=== PATIENT | male | born 1950 | race African-American/Black ===

== ENCOUNTER 2020-07-17 15:15 | Inpatient (IN) ==
[2020-07-17] MEDS ORDERED: SODIUM CHLORIDE 0.9% 1,000 ML IV STA (16:18)
[2020-07-17 17:05] LABS: Basophils # 0.1 10*3/uL (0.0-0.2); Basophils % 0.5 % (0.0-0.8); Eosinophils % 0.3 % (0.00-10.9); Hematocrit 34.3 VOL% (42.0-52.0); Hemoglobin 10.9 GM/DL (14.0-18.0); Immature Granulocytes % 2.7 %; Immature Granulocytes Absolute 0.25 #; Lymphocytes % 10.4 % (21.2-54.2); Mean Corpuscular HGB Conc 31.8 GM/DL (32-36); Mean Corpuscular Volume 76.7 FL (87-102); Mean Platelet Volume 10.1 FL (9.6-12.0); Monocytes % 8.2 % (1.7-12.7); Neutrophils % 77.9 % (38.7-73.9); Platelet Count 72 T/CUMM (130-400); Red Blood Count 4.47 MC/CUMM (3.8-5.5); Red Cell Distribution Width 14.1 % (9.3-17.3); White Blood Count 9.2 T/CUMM (4-12)
[2020-07-17 17:27] LABS: Alanine Aminotransferase 24 U/L (16-61); Alkaline Phosphatase 69 U/L (45-117); Aspartate Amino Transferase 21 U/L (0-37); Blood Urea Nitrogen 14 MG/DL (7-18); Calcium 8.9 MG/DL (8.5-10.1); Carbon Dioxide 27 MMOL/L (21-32); Estimated Glom Filtration Rate 75 ML/MIN; Glucose 230 MG/DL (74-106); Potassium 3.9 MMOL/L (3.5-5.1); Sodium 136 MMOL/L (136-145); Total Protein 7.7 G/DL (6.4-8.3)
[2020-07-17 17:40] LABS: Anisocytosis 1+; Band Neutrophils 4 % (0-10); Dohle Bodies 2+; Eosinophils 1 % (0-10); Lymphocytes 13 % (20-55); Microcytosis 1+; Platelet Estimate Decreased; Segmented Neutrophils 75 % (50-85); Total Cells Counted 100; Toxic Granulation 1+
[2020-07-17] MEDS ORDERED: LEVOFLOXACIN INJ 500 MG in PREMIX 1 EACH IV STA (17:48)
[2020-07-17] MEDS ORDERED: ONDANSETRON 4 MG/2 ML VIAL IV PRN (19:18)
[2020-07-17] MEDS ORDERED: DEXTROSE 50% 25 GM/50 ML VIAL IV PRN ×2 (19:18)
[2020-07-17] MEDS ORDERED: ZALEPLON 5 MG CAPSULE PO PRN (19:18)
[2020-07-17] MEDS ORDERED: GLUCAGON 1 MG VIAL IM PRN (19:18)
[2020-07-17] MEDS ORDERED: ALBUTEROL/IPRATROPIUM 3 ML NEB RESP TX PRN (19:42)
[2020-07-17 20:25] LABS: Bilirubin,Urine Negative (Negative); Blood, Urine Negative (Negative); Glucose,Urine (UA) >=500 mg/dL (Negative); Ketones,Urine Negative (Negative); Nitrite,Urine Positive (Negative); Protein,Urine 30 MG/DL; Urine Appearance CLEAR (Clear); Urine Color Yellow (Yellow); Urine Specific Gravity 1.014 (1.001-1.035); Urine Urobilinogen < 2.0 EU/DL (0.2-1.0)
[2020-07-17 20:34] LABS: Bacteria,Urine Occasional /HPF (Few); Mucus,Urine Occasional /LPF (Occasional); RBC,Urine 1 /HPF (0-4); Squamous Epithelial Cell,Urine Occasional /HPF (0-10); WBC,Urine 6 /HPF (0-6)
[2020-07-17] MEDS: INSULIN REGULAR 100 UNIT/ML SUBCUT SCH (20:58)
[2020-07-17] MEDS ORDERED: ENOXAPARIN 40 MG/0.4 ML SYRINGE SUBCUT SCH (21:00)
[2020-07-17] MEDS ORDERED: LORazepam 1 MG TABLET PO PRN (21:43)
[2020-07-17] MEDS ORDERED: ONDANSETRON ODT 4 MG TABLET PO PRN (21:44)
[2020-07-18] MEDS: ACETAMINOPHEN 325 MG TABLET PO PRN ×2 (00:04→16:22)
[2020-07-18 04:21] LABS: Basophils % 0.3 % (0.0-0.8); Eosinophils % 0.3 % (0.00-10.9); Hematocrit 34.5 VOL% (42.0-52.0); Hemoglobin 11.1 GM/DL (14.0-18.0); Immature Granulocytes % 1.3 %; Immature Granulocytes Absolute 0.12 #; Lymphocytes # 1.6 10*3/uL (1.4-4.0); Lymphocytes % 18.1 % (21.2-54.2); Mean Corpuscular HGB Conc 32.2 GM/DL (32-36); Mean Corpuscular Volume 75.8 FL (87-102); Mean Platelet Volume 10.4 FL (9.6-12.0); Monocytes % 10.3 % (1.7-12.7); Neutrophils % 69.7 % (38.7-73.9); Red Blood Count 4.55 MC/CUMM (3.8-5.5); Red Cell Distribution Width 13.8 % (9.3-17.3)
[2020-07-18 04:22] LABS: Platelet Count 88 T/CUMM (130-400)
[2020-07-18 04:42] LABS: Lymphocytes 16 % (20-55); Platelet Estimate Decreased; Segmented Neutrophils 75 % (50-85); Total Cells Counted 100
[2020-07-18 04:43] LABS: Hypochromasia Slight; Microcytosis Slight
[2020-07-18 04:45] LABS: Albumin 2.4 G/DL (3.4-5.0); Bilirubin,Total 0.6 MG/DL (0.2-1.0); Calcium 8.4 MG/DL (8.5-10.1); Osmolality,Calculated 268.4 MOS/KG (273-304); Potassium 3.7 MMOL/L (3.5-5.1); Total Protein 6.9 G/DL (6.4-8.3)
[2020-07-18] MEDS: INSULIN REGULAR 100 UNIT/ML SUBCUT SCH ×4 (07:38→20:23)
[2020-07-18] MEDS: amLODIPine 10 MG TABLET PO SCH (08:18)
[2020-07-18] MEDS: ASPIRIN EC 81 MG TABLET PO SCH (08:18)
[2020-07-18] MEDS: CHOLECALCIFEROL 1,000 UNIT TABLET PO SCH (08:18)
[2020-07-18] MEDS: MULTIVITAMIN (CENTRUM) TABLET PO SCH (08:19)
[2020-07-18] MEDS: PANTOPRAZOLE 40 MG TABLET PO SCH (08:19)
[2020-07-18] MEDS: SIMVASTATIN 20 MG TABLET PO SCH (08:19)
[2020-07-18] MEDS: METOPROLOL TARTRATE 25 MG TABLET PO SCH ×2 (08:19→20:23)
[2020-07-18] MEDS: THIAMINE 100 MG TABLET PO SCH (08:19)
[2020-07-18] MEDS: CYANOCOBALAMIN 500 MCG TABLET PO SCH (08:20)
[2020-07-18] MEDS: FOLIC ACID 1 MG TABLET PO SCH (08:20)
[2020-07-18] MEDS ORDERED: OLANZapine 5 MG TABLET PO SCH (09:00)
[2020-07-18] MEDS: DEXAMETHASONE 4 MG TABLET PO SCH ×2 (11:57→20:23)
[2020-07-18] MEDS ORDERED: MORPHINE 4 MG/1 ML VIAL IV PRN (14:32)
[2020-07-18] MEDS: cefTRIAXone 2,000 MG in SYRINGE 1 EACH IV SCH (16:18)
[2020-07-18] MEDS: AZITHROMYCIN INJ 500 MG in SODIUM CHLORIDE 0.9% 250 ML IV SCH (16:22)
[2020-07-18] MEDS ORDERED: LEVOFLOXACIN INJ 750 MG in PREMIX 1 EACH IV SCH (20:00)
[2020-07-18] MEDS: OLANZapine 5 MG TABLET PO SCH (20:23)
[2020-07-19] MEDS: ACETAMINOPHEN 325 MG TABLET PO PRN (00:49)
[2020-07-19 05:17] LABS: Basophils # 0.1 10*3/uL (0.0-0.2); Basophils % 0.4 % (0.0-0.8); Hematocrit 37.2 VOL% (42.0-52.0); Hemoglobin 12.1 GM/DL (14.0-18.0); Immature Granulocytes % 2.9 %; Immature Granulocytes Absolute 0.35 #; Lymphocytes # 1.1 10*3/uL (1.4-4.0); Lymphocytes % 8.7 % (21.2-54.2); Mean Corpuscular HGB Conc 32.5 GM/DL (32-36); Mean Corpuscular Volume 74.8 FL (87-102); Mean Platelet Volume 10.9 FL (9.6-12.0); Monocytes % 5.3 % (1.7-12.7); Neutrophils % 82.7 % (38.7-73.9); Red Blood Count 4.97 MC/CUMM (3.8-5.5); Red Cell Distribution Width 13.8 % (9.3-17.3)
[2020-07-19 05:27] LABS: White Blood Count 12.2 T/CUMM (4-12)
[2020-07-19 05:28] LABS: Platelet Count 125 T/CUMM (130-400)
[2020-07-19 05:30] LABS: Calcium 9.2 MG/DL (8.5-10.1); Osmolality,Calculated 274.2 MOS/KG (273-304); Potassium 4.2 MMOL/L (3.5-5.1)
[2020-07-19 05:39] LABS: Band Neutrophils 2 % (0-10); Hypochromasia 1+; Lymphocytes 12 % (20-55); Microcytosis 1+; Platelet Estimate Normal; Segmented Neutrophils 83 % (50-85); Total Cells Counted 100
[2020-07-19] MEDS: DEXAMETHASONE 4 MG TABLET PO SCH ×2 (08:25→22:42)
[2020-07-19] MEDS: METOPROLOL TARTRATE 25 MG TABLET PO SCH ×2 (08:25→22:42)
[2020-07-19] MEDS: SIMVASTATIN 20 MG TABLET PO SCH (08:25)
[2020-07-19] MEDS: ASPIRIN EC 81 MG TABLET PO SCH (08:25)
[2020-07-19] MEDS: MULTIVITAMIN (CENTRUM) TABLET PO SCH (08:25)
[2020-07-19] MEDS: FOLIC ACID 1 MG TABLET PO SCH (08:25)
[2020-07-19] MEDS: THIAMINE 100 MG TABLET PO SCH (08:25)
[2020-07-19] MEDS: CHOLECALCIFEROL 1,000 UNIT TABLET PO SCH (08:25)
[2020-07-19] MEDS: PANTOPRAZOLE 40 MG TABLET PO SCH (08:25)
[2020-07-19] MEDS: CYANOCOBALAMIN 500 MCG TABLET PO SCH (08:26)
[2020-07-19] MEDS: amLODIPine 10 MG TABLET PO SCH (08:26)
[2020-07-19] MEDS: INSULIN REGULAR 100 UNIT/ML SUBCUT SCH ×4 (13:27→22:42)
[2020-07-19] MEDS: AZITHROMYCIN INJ 500 MG in SODIUM CHLORIDE 0.9% 250 ML IV SCH (13:59)
[2020-07-19] MEDS: MEROPENEM 500 MG in SODIUM CHLORIDE 0.9% 100 ML IV SCH ×2 (17:30→22:43)
[2020-07-19] MEDS: cefTRIAXone 2,000 MG in SYRINGE 1 EACH IV SCH (17:30)
[2020-07-19] MEDS: OLANZapine 5 MG TABLET PO SCH (22:42)
[2020-07-20 04:16] LABS: Basophils # 0.1 10*3/uL (0.0-0.2); Basophils % 0.3 % (0.0-0.8); Eosinophils % 0.1 % (0.00-10.9); Hematocrit 32.6 VOL% (42.0-52.0); Immature Granulocytes % 2.7 %; Immature Granulocytes Absolute 0.42 #; Lymphocytes # 1.1 10*3/uL (1.4-4.0); Lymphocytes % 6.9 % (21.2-54.2); Mean Corpuscular HGB Conc 33.7 GM/DL (32-36); Mean Corpuscular Volume 72.6 FL (87-102); Mean Platelet Volume 10.5 FL (9.6-12.0); Platelet Count 177 T/CUMM (130-400); Red Blood Count 4.49 MC/CUMM (3.8-5.5); Red Cell Distribution Width 13.4 % (9.3-17.3); White Blood Count 15.6 T/CUMM (4-12)
[2020-07-20] MEDS: MEROPENEM 500 MG in SODIUM CHLORIDE 0.9% 100 ML IV SCH ×2 (04:36→10:24)
[2020-07-20 04:38] LABS: Hypochromasia 1+; Lymphocytes 4 % (20-55); Microcytosis Slight; Platelet Estimate Adequate; Segmented Neutrophils 90 % (50-85); Total Cells Counted 100
[2020-07-20 05:34] LABS: Calcium 8.7 MG/DL (8.5-10.1); Osmolality,Calculated 270.5 MOS/KG (273-304); Potassium 4.4 MMOL/L (3.5-5.1)
[2020-07-20] MEDS: METOPROLOL TARTRATE 25 MG TABLET PO SCH (08:14)
[2020-07-20] MEDS: amLODIPine 10 MG TABLET PO SCH (08:15)
[2020-07-20] MEDS: CHOLECALCIFEROL 1,000 UNIT TABLET PO SCH (08:15)
[2020-07-20] MEDS: CYANOCOBALAMIN 500 MCG TABLET PO SCH (08:15)
[2020-07-20] MEDS: FOLIC ACID 1 MG TABLET PO SCH (08:15)
[2020-07-20] MEDS: SIMVASTATIN 20 MG TABLET PO SCH (08:15)
[2020-07-20] MEDS: PANTOPRAZOLE 40 MG TABLET PO SCH (08:15)
[2020-07-20] MEDS: MULTIVITAMIN (CENTRUM) TABLET PO SCH (08:15)
[2020-07-20] MEDS: DEXAMETHASONE 4 MG TABLET PO SCH (08:16)
[2020-07-20] MEDS: THIAMINE 100 MG TABLET PO SCH (08:16)
[2020-07-20] MEDS: ASPIRIN EC 81 MG TABLET PO SCH (08:16)
[2020-07-20] MEDS: INSULIN REGULAR 100 UNIT/ML SUBCUT SCH ×2 (10:44→13:42)
[2020-07-20] MEDS ORDERED: ERTAPENEM 1,000 MG in SODIUM CHLORIDE 0.9% 100 ML IV SCH (11:30)
[2020-07-20 12:25] VITALS: BP 96/54
[2020-07-20] MEDS: AZITHROMYCIN INJ 500 MG in SODIUM CHLORIDE 0.9% 250 ML IV SCH (12:45)
== END 2020-07-20 14:50 | disposition home or self-care (01) | DRG 194 ==
LOC: N.EDINP 15:15 → N.ED 15:15 → N.EDINP 07-18 13:11 → N.TELES 07-18 13:32
PROVIDERS: ADMIT Internal Medicine; ATTEND Internal Medicine

== ENCOUNTER 2020-07-22 13:08 | Inpatient (IN) ==
[2020-07-22 14:33] LABS: Basophils # 0.1 10*3/uL (0.0-0.2); Basophils % 0.3 % (0.0-0.8); Hematocrit 40.6 VOL% (42.0-52.0); Hemoglobin 13.1 GM/DL (14.0-18.0); Immature Granulocytes % 5.4 %; Immature Granulocytes Absolute 1.17 #; Lymphocytes # 1.1 10*3/uL (1.4-4.0); Lymphocytes % 4.8 % (21.2-54.2); Mean Corpuscular HGB Conc 32.3 GM/DL (32-36); Mean Corpuscular Volume 74.9 FL (87-102); Mean Platelet Volume 9.6 FL (9.6-12.0); Monocytes % 5.2 % (1.7-12.7); Neutrophils % 84.3 % (38.7-73.9); Platelet Count 396 T/CUMM (130-400); Red Blood Count 5.42 MC/CUMM (3.8-5.5); Red Cell Distribution Width 14.1 % (9.3-17.3); White Blood Count 21.9 T/CUMM (4-12)
[2020-07-22] MEDS ORDERED: SODIUM CHLORIDE 0.9% 1,000 ML IV STA (14:38)
[2020-07-22 14:43] LABS: PT Patient Result 10.7 SECS (9.8-11.9)
[2020-07-22 14:59] LABS: Alanine Aminotransferase 26 U/L (16-61); Albumin 3.2 G/DL (3.4-5.0); Alkaline Phosphatase 66 U/L (45-117); Aspartate Amino Transferase 7 U/L (0-37); Blood Urea Nitrogen 17 MG/DL (7-18); Calcium 9.2 MG/DL (8.5-10.1); Carbon Dioxide 28 MMOL/L (21-32); Estimated Glom Filtration Rate 83 ML/MIN; Glucose 182 MG/DL (74-106); Osmolality,Calculated 257.5 MOS/KG (273-304); Potassium 4.2 MMOL/L (3.5-5.1); Sodium 125 MMOL/L (136-145)
[2020-07-22 15:33] LABS: Band Neutrophils 5 % (0-10); Hypochromasia Slight; Lymphocytes 6 % (20-55); Platelet Estimate Normal; Segmented Neutrophils 86 % (50-85); Total Cells Counted 100
[2020-07-22 15:34] LABS: Polychromasia Slight
[2020-07-22] MEDS ORDERED: PIPERACILLIN/TAZOBACTAM 3,375 MG in SODIUM CHLORIDE 0.9% 100 ML IV STA (16:25)
[2020-07-22 17:34] LABS: Bacteria,Urine Occasional /HPF (Few); Bilirubin,Urine Negative (Negative); Blood, Urine Negative (Negative); Glucose,Urine (UA) Negative (Negative); Ketones,Urine Negative (Negative); Mucus,Urine Occasional /LPF (Occasional); Nitrite,Urine Negative (Negative); Protein,Urine Negative; RBC,Urine 3 /HPF (0-4); Squamous Epithelial Cell,Urine Occasional /HPF (0-10); Urine Appearance CLEAR (Clear); Urine Color Yellow (Yellow); Urine Specific Gravity 1.017 (1.001-1.035); WBC,Urine 2 /HPF (0-6)
[2020-07-22] MEDS ORDERED: DEXTROSE 50% 25 GM/50 ML VIAL IV PRN (17:42)
[2020-07-22] MEDS ORDERED: ONDANSETRON 4 MG/2 ML VIAL IV PRN (17:42)
[2020-07-22] MEDS ORDERED: GLUCAGON 1 MG VIAL IM PRN (17:42)
[2020-07-22] MEDS ORDERED: DOCUSATE SODIUM 100 MG CAPSULE PO PRN (17:42)
[2020-07-22] MEDS ORDERED: hydrALAZINE 20 MG/1 ML VIAL IV PRN (17:42)
[2020-07-22] MEDS ORDERED: ACETAMINOPHEN 325 MG TABLET PO PRN (17:42)
[2020-07-22] MEDS: DEXAMETHASONE 4 MG/1 ML VIAL IV SCH (18:53)
[2020-07-22] MEDS: SODIUM CHLORIDE 0.9% 1,000 ML IV SCH (18:53)
[2020-07-22] MEDS: ENOXAPARIN 40 MG/0.4 ML SYRINGE SUBCUT SCH (20:53)
[2020-07-22] MEDS: METOPROLOL TARTRATE 25 MG TABLET PO SCH (20:53)
[2020-07-22] MEDS: INSULIN REGULAR 100 UNIT/ML SUBCUT SCH (20:53)
[2020-07-23] MEDS: DEXAMETHASONE 4 MG/1 ML VIAL IV SCH ×2 (05:48→18:02)
[2020-07-23 07:10] LABS: Basophils # 0.1 10*3/uL (0.0-0.2); Basophils % 0.3 % (0.0-0.8); Hemoglobin 10.9 GM/DL (14.0-18.0); Immature Granulocytes % 5.2 %; Immature Granulocytes Absolute 1.14 #; Lymphocytes # 1.6 10*3/uL (1.4-4.0); Lymphocytes % 7.2 % (21.2-54.2); Mean Platelet Volume 9.1 FL (9.6-12.0); Monocytes % 6.4 % (1.7-12.7); Neutrophils % 80.9 % (38.7-73.9); Platelet Count 363 T/CUMM (130-400); Red Blood Count 4.52 MC/CUMM (3.8-5.5); Red Cell Distribution Width 13.6 % (9.3-17.3); White Blood Count 21.9 T/CUMM (4-12)
[2020-07-23 07:29] LABS: Calcium 8.4 MG/DL (8.5-10.1); Osmolality,Calculated 260.1 MOS/KG (273-304)
[2020-07-23] MEDS: SODIUM CHLORIDE 0.9% 1,000 ML IV SCH ×2 (08:33→21:16)
[2020-07-23] MEDS: ERTAPENEM 1,000 MG in SODIUM CHLORIDE 0.9% 100 ML IV SCH (08:35)
[2020-07-23] MEDS: INSULIN REGULAR 100 UNIT/ML SUBCUT SCH ×4 (08:35→21:19)
[2020-07-23] MEDS: CYANOCOBALAMIN 500 MCG TABLET PO SCH (08:35)
[2020-07-23] MEDS: amLODIPine 10 MG TABLET PO SCH (08:35)
[2020-07-23] MEDS: PANTOPRAZOLE 40 MG TABLET PO SCH (08:36)
[2020-07-23] MEDS: METOPROLOL TARTRATE 25 MG TABLET PO SCH ×2 (08:36→21:17)
[2020-07-23] MEDS: THIAMINE 100 MG TABLET PO SCH (08:36)
[2020-07-23] MEDS: ASPIRIN EC 81 MG TABLET PO SCH (08:36)
[2020-07-23] MEDS: FOLIC ACID 1 MG TABLET PO SCH (08:36)
[2020-07-23] MEDS: metFORMIN 500 MG TABLET PO SCH (08:36)
[2020-07-23] MEDS: OLANZapine 5 MG TABLET PO SCH (08:36)
[2020-07-23] MEDS: MULTIVITAMIN (CENTRUM) TABLET PO SCH (08:36)
[2020-07-23] MEDS: CHOLECALCIFEROL 1,000 UNIT TABLET PO SCH (08:36)
[2020-07-23] MEDS: SIMVASTATIN 10 MG TABLET PO SCH (08:36)
[2020-07-23] MEDS ORDERED: ALUMINUM/MAGNES/SIMETH MAX STR 30 ML UDCUP PO PRN (16:00)
[2020-07-23] MEDS: ENOXAPARIN 40 MG/0.4 ML SYRINGE SUBCUT SCH (21:17)
[2020-07-24] MEDS: DEXAMETHASONE 4 MG/1 ML VIAL IV SCH ×2 (06:35→20:31)
[2020-07-24 06:36] LABS: Basophils # 0.1 10*3/uL (0.0-0.2); Basophils % 0.3 % (0.0-0.8); Hematocrit 34.8 VOL% (42.0-52.0); Hemoglobin 11.5 GM/DL (14.0-18.0); Immature Granulocytes % 6.9 %; Immature Granulocytes Absolute 1.49 #; Lymphocytes # 1.6 10*3/uL (1.4-4.0); Lymphocytes % 7.2 % (21.2-54.2); Mean Corpuscular Volume 73.9 FL (87-102); Mean Platelet Volume 8.7 FL (9.6-12.0); Neutrophils % 78.6 % (38.7-73.9); Platelet Count 451 T/CUMM (130-400); Red Blood Count 4.71 MC/CUMM (3.8-5.5); Red Cell Distribution Width 13.8 % (9.3-17.3); White Blood Count 21.7 T/CUMM (4-12)
[2020-07-24 06:57] LABS: Hypochromasia 1+; Lymphocytes 6 % (20-55); Microcytosis 1+; Platelet Estimate Adequate; Segmented Neutrophils 88 % (50-85); Total Cells Counted 100
[2020-07-24 06:59] LABS: Calcium 8.3 MG/DL (8.5-10.1); Osmolality,Calculated 266.7 MOS/KG (273-304); Potassium 4.2 MMOL/L (3.5-5.1)
[2020-07-24] MEDS: INSULIN REGULAR 100 UNIT/ML SUBCUT SCH ×4 (09:25→20:30)
[2020-07-24] MEDS: CYANOCOBALAMIN 500 MCG TABLET PO SCH (09:26)
[2020-07-24] MEDS: MULTIVITAMIN (CENTRUM) TABLET PO SCH (09:26)
[2020-07-24] MEDS: CHOLECALCIFEROL 1,000 UNIT TABLET PO SCH (09:26)
[2020-07-24] MEDS: THIAMINE 100 MG TABLET PO SCH (09:26)
[2020-07-24] MEDS: amLODIPine 10 MG TABLET PO SCH (09:26)
[2020-07-24] MEDS: metFORMIN 500 MG TABLET PO SCH (09:26)
[2020-07-24] MEDS: PANTOPRAZOLE 40 MG TABLET PO SCH (09:26)
[2020-07-24] MEDS: OLANZapine 5 MG TABLET PO SCH (09:26)
[2020-07-24] MEDS: SIMVASTATIN 10 MG TABLET PO SCH (09:26)
[2020-07-24] MEDS: ASPIRIN EC 81 MG TABLET PO SCH (09:26)
[2020-07-24] MEDS: FOLIC ACID 1 MG TABLET PO SCH (09:27)
[2020-07-24] MEDS: ERTAPENEM 1,000 MG in SODIUM CHLORIDE 0.9% 100 ML IV SCH (09:27)
[2020-07-24] MEDS: METOPROLOL TARTRATE 25 MG TABLET PO SCH ×2 (09:27→20:34)
[2020-07-24] MEDS: SODIUM CHLORIDE 0.9% 1,000 ML IV SCH (10:32)
[2020-07-24] MEDS: ENOXAPARIN 40 MG/0.4 ML SYRINGE SUBCUT SCH (20:30)
[2020-07-25 02:00] VITALS: BP 129/58
== END 2020-07-25 01:57 | disposition hospice, home (50) | DRG 55 ==
LOC: N.ED 13:08 → N.EDINP 17:42 → SUATTDRO 17:42 → N.5E 18:41 → N.4E 07-24 11:38
PROVIDERS: ADMIT Internal Medicine; ATTEND Internal Medicine Geriatric Medicine